=== PATIENT | male | born 1990 | race Caucasian/White ===

== ENCOUNTER 2016-12-31 17:23 | Inpatient (IN) | payer MEDICAID ==
--- NOTE | ~2016-12-31 | PA ---
Unit #: [id number] #: [id number] Patient: MICHEAL WYNN [id number] [facility] [address] [place] [address] [id number] MR#: [id number] NAME: MICHEAL WYNN ROOM: [facility] Age: 26 Sex: M Admission Date: 12/31/2016 : 1990 Date of Assessment: 01/01/2017 Attending Physician: Narendra Kong M.D. Admitting Physician: Narendra Kong M.D. Primary Care Physician: Primary Care Physician No PSYCHIATRIC ASSESSMENT IDENTIFYING INFORMATION The patient is a 26-year-old white male admitted reporting feelings of suicidal ideation and increasing paranoia. CHIEF COMPLAINT "They told me to come." INFORMANT Patient, reliability is fair. HISTORY OF PRESENT ILLNESS The patient is a 26-year-old white male admitted to the [address] [place] [address] Unit with complaints of increasing paranoia and depression. The patient reports suicidal ideation with plan to overdose. He reports that he last attempted overdose approximately 2 months ago by means of large dose of heroin. The patient admits to a history of intravenous heroin abuse as well as abuse of methamphetamine. He reports that he claims not to abuse in 2 months. The patient reports that he "sees people" and sometimes feels paranoid. For example, feeling as though his mother was trying to "set him up with the police." The patient is presently homeless and unemployed. He is the father of 3 [id number] children, none of whom he pays child support on. He has been incarcerated in the past upon drug paraphernalia charges and received his GED while incarcerated. The patient is currently living with a friend. 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 He reports that he has maintained sobriety for the past 2 months. He continues to endorse positive suicidal ideation as noted previously when seen today. He complains of recent poor sleep. He denies any loss of appetite. PAST PSYCHIATRIC HISTORY The patient reports a history of multiple psychiatric hospitalizations as an adolescent while living in [place]. MEDICATIONS None at the time of admission. ALLERGIES None. FAMILY HISTORY Noncontributory. SOCIAL HISTORY Unit #: [id number] #: [id number] Patient: MICHEAL WYNN The patient lives with a friend. He is presently homeless. He completed his GED and is presently unemployed. Other aspects of the patient's social history are included earlier in this report. MENTAL STATUS EXAMINATION Examination at this time reveals the patient to be a well-developed well-nourished heavily tattooed white female appearing his stated age. He is in no apparent physical distress at the time of examination. He is awake, alert, and oriented in all spheres. His mood is mildly dysphoric, his affect is constricted. Speech is generally well coherent. There are no gross deficits in memory or cognition noted. Intelligence is judged to be in the average range based on fund of knowledge. The patient is generally cooperative throughout the interview. She is currently reporting positive suicidal ideation. He denies homicidal ideation. He reports positive visual hallucination and paranoid delusional thinking. His judgment and insight appear to be reasonably intact. ASSETS AND LIABILITIES The patient's assets: Motivation for change. Liabilities: Possible malingering. History of substance abuse and sociopathy. DIAGNOSTIC IMPRESSION 1. Dysthymic disorder. 2. Psychotic disorder, unspecified. 3. Methamphetamine use disorder. 4. Opioid use disorder. 5. Antisocial personality disorder. TREATMENT PLAN The patient will remain hospitalized for safety and stabilization. I am a bit skeptical as to the veracity of the patient's statements regarding the visual hallucinations which he states he experiences, and he is quite vague in his description of any paranoid symptoms whatever the case. We will go head with an initiation of citalopram 20 mg daily to address the patient's mood symptoms and may consider addition of antipsychotic medication as the patient's day progresses. ESTIMATED LENGTH OF STAY 3 to 5 days. Dictated by... Jonathan Vee TD: 01/02/2017 07:16 JOB #: [id number] Unit #: [id number] #: [id number] Patient: MICHEAL WYNN PSYCHIATRIC ASSESSMENT X Narendra Kong MD PSYCHIATRIC ASSESSMENT
--- NOTE | ~2016-12-31 | HP ---
Unit #: [id number] #: [id number] Patient: MICHEAL WYNN [id number] [place] [address] [id number] MR#: [id number] NAME: MICHEAL WYNN ROOM: P257 Age: 26 Sex: M Admission Date: 12/31/2016 : 1990 Attending Physician: Narendra Kong M.D. Admitting Physician: Narendra Kong M.D. Primary Care Physician: Primary Care Physician No HISTORY AND PHYSICAL HISTORY OF PRESENT ILLNESS Micheal is a 26 year old admitted to [address] [place] [address] because of his poly illicit substance abuse which include methamphetamine and heroin. PAST MEDICAL HISTORY 1. History of poly-illicit substance abuse. 2. Asthma. PAST SURGICAL HISTORY Nothing reported. ALLERGIES No known drug allergies. SOCIAL HISTORY Smokes 2-1/2 packs per day. Drinks alcohol on occasion. Has a long history of illicit substance abuse to include LSD, mushrooms, IV heroin, and amphetamines. FAMILY HISTORY Medically noncontributory. REVIEW OF SYSTEMS CONSTITUTIONAL: No fever or chills. HEENT: Denies any sore throat, ear pain or runny nose. CARDIOVASCULAR: Denies chest pain, irregular heart rhythm or palpitations. CHEST: Denies shortness of breath or cough. No hemoptysis. GASTROINTESTINAL: Denies nausea, vomiting, diarrhea or chronic constipation. ENDOCRINE: Denies history of increased thirst or urination. No recent significant weight loss or gain. GENITOURINARY: Denies dysuria, frequency, or hematuria. SKIN: Denies any rashes. HEMATOLOGIC: Denies history of increased bleeding or bruising. MUSCULOSKELETAL: Denies any hot, swollen joints. No generalized muscle pain. NEUROLOGIC: Denies problems with vision or speech. No frequent, severe headaches. No numbness, tingling or weakness in any extremities. Denies loss of bladder or bowel control. CURRENT MEDICATIONS 1. Celexa 20 mg q. day. 2. Milk of Magnesia p.r.n. Unit #: [id number] #: [id number] Patient: MICHEAL WYNN 3. Maalox p.r.n. 4. Tylenol p.r.n. 5. Nicotine patch 21 mg q. day. PHYSICAL EXAMINATION GENERAL: Alert, well nourished. No apparent distress. VITAL SIGNS: Blood pressure 124/68, heart rate 80, respirations 16, and temperature 98.6. WEIGHT: 175. HEIGHT: 5 feet 7 inches. SKIN: Warm and dry without rash or lesion. HEENT: Normocephalic. TMs not viewed. Oral and nasal passages clear. Conjunctivae clear. PERRLA. EOMs intact. NECK: Supple without lymphadenopathy or thyromegaly. HEART: Regular rate and rhythm without murmur. LUNGS: Clear. ABDOMEN: Soft, nontender. : Not done. EXTREMITIES: No evidence of cyanosis, clubbing or edema. Moves all without focal deficit. NEUROLOGICAL: Grossly within normal limits. Cranial Nerves: II: Visual dudley are intact. III, IV AND : Extraocular movements are intact. Pupils are equal, round and reactive to light. V: Facial sensation is grossly normal. VII: Facial movements and expression are normal. VIII: Auditory acuity grossly intact. IX, X: Uvula is midline. Phonation is normal. XI: Patient shrugs shoulders and turns head normally. XII: Tongue protrudes in the midline. Sensory and Motor Function: Sensory and motor sensation is grossly normal. Motor: moves all extremities well. Coordination: Gait is normal. Deep Tendon Reflexes: Intact. IMPRESSION Psychiatric admission. RECOMMENDATIONS PSYCHIATRIC: Per psychiatrist. MEDICAL: I see no contraindication to participate in this facility's activities. MEDICAL PROGNOSIS Good. MEDICAL CONDITION Stable. Dictated by... Whitley Graham P.A.-C. for Jonathan Cornejo/mick TD: 01/02/2017 11:48 JOB #: [id number] Unit #: [id number] #: [id number] Patient: MICHEAL WYNN HISTORY AND PHYSICAL X Whitley Graham HISTORY AND PHYSICAL
--- NOTE | ~2016-12-31 | DS ---
Unit #: [id number] #: [id number] Patient: MICHEAL WYNN [id number] [facility] [address] [place] [address] [id number] MR#: [id number] NAME: MICHEAL WYNN ROOM: [facility] Age: 26 Sex: M Admission Date: 12/31/2016 : 1990 Discharge Date: 01/02/2017 Attending Physician: Narendra Kong M.D. Primary Care Physician: Primary Care Physician No DISCHARGE SUMMARY REASON FOR ADMISSION The patient is a 26-year-old , white male, admitted to the [facility] unit after reporting auditory hallucinations and some suicidal thinking. DIAGNOSTIC STUDIES LABORATORY RESULTS: Included elevated monocyte count of 12.2. HOSPITAL COURSE The patient was admitted to the -[facility] unit and placed on suicide precautions. He complained of both psychotic symptoms and mood symptoms, but his descriptions of both seemed somewhat manufactured and not really consistent with genuine descriptions of either psychotic or depressive symptoms. The patient further stated that he would refuse to go to any groups because he "hated being around people," and chooses to sleep all day. On 01/03/2016, the patient denied suicidal ideation again. He reiterated that he planned to not attend any programming on the unit. It was explained to the patient that he would not benefit from being in the hospital if he did not attend group programming. He persisted in his refusal to participate within the therapeutic milieu and in the absence of suicidal ideation and he was discharged. FINAL DIAGNOSES Dysthymic disorder, antisocial personality disorder. DISPOSITION ON DISCHARGE The patient is discharged on the following medications: Citalopram 20 mg daily for depression. DISCHARGE INSTRUCTIONS No dietary or physical restrictions were placed upon the patient at the time of discharge. FOLLOWUP Followup will take place through the auspices of community health resources. PROGNOSIS The patient's prognosis is considered less than optimal given his profound sociopathy as well as his poor compliance with treatment. Dictated by... Narendra Kong M.D. Unit #: [id number] #: [id number] Patient: MICHEAL WYNN CB/modl TD: 01/02/2017 22:47 JOB #: [id number] DISCHARGE SUMMARY X Narendra Kong MD DISCHARGE SUMMARY
[2017-01-01 09:28] LABS: BASOPHIL# 0.1 X10e3 (0-0.3); BASOPHIL% 0.7 % (0-2.5); EOSINOPHIL# 0.5 X10e3 (0-0.7); EOSINOPHIL% 6.8 % (0.0-7.0); HEMATOCRIT 40.4 % (38.0-50.0); HEMOGLOBIN 13.6 gm/dL (13.0-16.0); LYMPHOCYTE# 2.4 X10e3 (1.0-3.5); LYMPHOCYTE% 30.1 % (17.0-45.0); MEAN CELL VOLUME 88.7 FL (83-96); MEAN CORPUSCULAR HEMOGLOBIN 29.9 PG (28-34); MEAN CORPUSCULAR HGB CONC 33.7 g/dL (30-36); MEAN PLATELET VOLUME 7.5 FL (6.5-11.5); MONOCYTE% 12.2 % (3.0-12.0); NEUTROPHIL% 50.2 % (40-75); PLATELET COUNT 318 X10e3 (140-420); RED BLOOD COUNT 4.56 X10e (3.90-5.60); RED CELL DISTRIBUTION WIDTH 12.9 % (11.0-15.5)
[2017-01-01 09:48] LABS: THYROID STIMULATING HORMONE 0.93 uIU/ml (0.34-5.60)
[2017-01-01 09:56] LABS: ALBUMIN SERUM 3.7 g/dL (3.5-5.0); ALKALINE PHOSPHATASE 64 U/L (32-92); ALT (SGPT) 13 U/L (10-40); AST (SGOT) 15 U/L (10-42); BILIRUBIN,TOTAL 0.5 mg/dL (0.2-2.0); BLOOD UREA NITROGEN 10 mg/dL (9-23); BUN/CREATININE RATIO 14.28; CARBON DIOXIDE 29 mmol/L (22-31); CHLORIDE 103 mmol/L (100-111); CREATININE SERUM 0.7 mg/dL (0.6-1.4); DIFF IND NO; GLOM FILT RATE Estimated ABOVE60 mL/min (>60); GLUCOSE FASTING 93 mg/dL (70-110); POTASSIUM 4.8 mmol/L (3.5-5.1); PROTEIN TOTAL SERUM 6.7 g/dL (6.0-8.3); SODIUM 139 mmol/L (135-145)
[2017-01-01 09:57] LABS: FREE THYROXIN (T4) 0.78 ng/dL (0.58-1.64)
== END 2017-01-02 13:34 | disposition home or self-care (01) | DRG 881 ==
LOC: P2L 17:23
PROVIDERS: Specialist
PROC: 3E0234Z Introduction of Serum, Toxoid and Vaccine into Muscle, Percutaneous Approach (ICD-10-PCS; principal; 2016-12-31)
DX: F34.1 Dysthymic disorder (principal); F11.10 Opioid abuse, uncomplicated; F60.2 Antisocial personality disorder; J45.909 Unspecified asthma, uncomplicated; F17.210 Nicotine dependence, cigarettes, uncomplicated; F15.10 Other stimulant abuse, uncomplicated; Z23 Encounter for immunization
CPT/HCPCS: 80053; 84439; 84443; 85025; 90688